=== PATIENT | male | born 1985 | race Caucasian/White ===

== ENCOUNTER 2024-09-24 18:50 | Emergency (ER) | payer OTHER, SELFPAY ==
[2024-09-24] VITALS (8 sets, daily range): BP systolic 131–147; BP diastolic 67–88; PULSE 74–83; RESP 16; TEMP 36.8; O2SAT 94–100; BMI 28.7
[2024-09-24 19:32] LABS: Add Manual Diff / Slide Review NO; Basophils Absolute Auto 100 /uL (0-100); Basophils Percent Auto 0.7 % (0-2); Eosinophils Absolute Auto 0 /uL (0-450); Hematocrit 41.6 % (41-53); Lymphocytes Absolute Auto 800 /uL (1100-4500); Lymphocytes Percent Auto 7.8 % (25-40); Mean Corpuscular HGB Conc 36.1 % (30-36); Mean Corpuscular Hemoglobin 32.5 PG (26-34); Mean Corpuscular Volume 90.1 fL (80-100); Monocytes Absolute Auto 400 /uL (0-900); Monocytes Percent Auto 4.3 % (3-14); Neutrophils Absolute Auto 8600 /uL (1500-7000); Neutrophils Percent Auto 87.2 % (50-75); Platelet Count 260 X10^3/uL (150-400); Red Blood Cell Count 4.62 X10^6/uL (4.5-5.9); Red Cell Distribution Width 13.2 % (11.6-14.8); White Blood Cell Count 9.9 X10^3/uL (4.5-11.0)
[2024-09-24 19:37] LABS: Acetaminophen < 10 ug/mL (10-30); Alanine Aminotransferase 50 IU/L (<50); Albumin 4.7 g/dL (3.5-5.0); Alkaline Phosphatase 81 U/L (38-126); Aspartate Aminotransferase 53 IU/L (17-59); BUN Creatinine Ratio 12.4 (6-22); Blood Urea Nitrogen 11 mg/dL (9-20); Calcium 8.7 mg/dL (8.4-10.2); Carbon Dioxide 28 mmol/L (22-32); Chloride 97 mmol/L (98-107); Estimated Glomerular Filt Rate > 60 mL/min (>60); Ethanol (ETOH) < 10 mg/dL; Globulin 2.4 g/dL (1.7-4.1); Glucose 106 mg/dL (70-100); HEMOLYSIS 18 (0-50); Potassium 3.5 mmol/L (3.4-5.1); Salicylate < 1.0 mg/dL (<20); Sodium 134 mmol/L (137-145); Total Protein 7.1 g/dL (6.3-8.2)
[2024-09-24] MEDS: PHENobarbital 65 MG/ML VIAL 130 MG IV (20:00)
[2024-09-24 20:02] LABS: Free T4, Direct Thyroxine 1.16 ng/dL (0.78-2.19)
--- NOTE | 2024-09-24 21:46 | ED_ITS ---
HPI - Alcohol General Chief Complaint: Toxicology Problem Stated Complaint: Detox Time Seen by Provider: 09/24/24 21:46 Source: patient Mode of arrival: Ambulatory History of Present Illness HPI narrative: Patient is a 39-year-old male sitting that he wants detox from alcohol. Last drink loss was last night 11:00 p.m.. Reports that he has 5 cocktail drinks on week days and more on the weekends. He went to a detox in 2013 states sober for that your but has not really been sober since. Reports that somebody smelled alcohol on his breath at work yesterday he was sent to medical and ultimately sent to the ED for evaluation. He does not feel shaky no anxiety never had alcohol withdrawal seizure before. Does not necessarily want detox tonight. He was in the and they have their own program so he was not really sure how it supposed to work. Related Data Previous Rx's Medication Instructions Recorded chlordiazepoxide HCl 25 mg capsule 25 mg PO Q6-8H PRN alcohol 09/24/24 withdrawal #12 caps Patient History Social History Smoking Status: Former smoker Smoking Status: Former smoker Exam Initial Vital Signs Initial Vital Signs: Vital Signs Temperature 98.3 F 09/24/24 18:58 Pulse Rate 81 09/24/24 18:58 Respiratory Rate 16 09/24/24 18:58 Blood Pressure 142/84 H 09/24/24 18:58 Pulse Oximetry 99 09/24/24 18:58 Oxygen Delivery Method Room Air 09/24/24 18:58 GENERAL: Alert pleasant 39-year-old male and in no acute distress. HEENT: Head atraumatic,EOMI, pupils reactive, face symmetric, moist mucous membranes , no icterus or jaundice CARDIOVASCULAR: Regular rate and rhythm without murmurs, rubs or gallops. RESPIRATORY: Breath sounds equal bilaterally, no wheezes rales or rhonchi. ABDOMEN: Soft, nontender. Normoactive bowel sounds all 4 quadrants. No guarding or rebound. EXTREMITIES: Normal range of motion, no clubbing or edema. Neurovascularly intact NEUROLOGICAL: Alert and oriented x4.Normal gait and speech. Cranial nerves II through XII grossly intact. No tremors SKIN: Warm, dry, no laceration, no petechiae, no rashes or lesions. Course Orders Ordered: ED Orders 09/24/24 19:08 Acetaminophen Stat Complete Blood Count AUTO DIFF Stat Comprehensive Metabolic Panel Stat Ethanol (ETOH) Stat Free T4, Direct Thyroxine Stat Salicylate Stat Thyroid Stimulating Hormone Stat Discontinued Medications Phenobarbital (Phenobarbital 65 Mg/Ml Vial) 130 mg IV NOW ONE Stop: 09/24/24 19:47 Last Admin: 09/24/24 20:00 Dose: 130 mg Documented By: Vital Signs Vital signs: Vital Signs - 8 hr 09/24/24 19:42 09/24/24 19:43 09/24/24 20:00 Pulse Rate 83 74 Blood Pressure 142/85 H Pulse Oximetry 97 96 Oxygen Delivery Method 09/24/24 20:00 09/24/24 20:30 09/24/24 20:30 Pulse Rate 74 Blood Pressure 143/85 H 147/67 H Pulse Oximetry 94 Oxygen Delivery Method Room Air 09/24/24 21:00 09/24/24 21:00 09/24/24 21:30 Pulse Rate 79 75 Blood Pressure 132/72 137/72 Pulse Oximetry 95 94 Oxygen Delivery Method 09/24/24 22:00 Pulse Rate Blood Pressure 131/88 Pulse Oximetry 100 Oxygen Delivery Method Room Air MDM - Alcohol Lab Data 09/24/24 19:08 09/24/24 19:08 Labs: Lab Results 09/24/24 Range/Units 19:08 WBC 9.9 (4.5-11.0) X10^3/uL RBC 4.62 (4.5-5.9) X10^6/uL Hgb 15.0 (13.5-17.5) g/dL Hct 41.6 (41-53) % MCV 90.1 (80-100) fL MCH 32.5 (26-34) PG MCHC 36.1 H (30-36) % RDW 13.2 (11.6-14.8) % Plt Count 260 (150-400) X10^3/uL Neut % (Auto) 87.2 H (50-75) % Lymph % (Auto) 7.8 L (25-40) % Williamson % (Auto) 4.3 (3-14) % Eos % (Auto) 0.0 L (2-4) % Baso % (Auto) 0.7 (0-2) % Neut # (Auto) 8600 H (0670-4365) /uL Lymph # (Auto) 800 L (7666-8589) /uL Williamson # (Auto) 400 (0-900) /uL Eos # (Auto) 0 (0-450) /uL Baso # (Auto) 100 (0-100) /uL Sodium 134 L (137-145) mmol/L Potassium 3.5 (3.4-5.1) mmol/L Chloride 97 L (98-107) mmol/L Carbon Dioxide 28 (22-32) mmol/L BUN 11 (9-20) mg/dL Creatinine 0.89 (0.66-1.25) mg/dL Estimated GFR > 60 (>60) mL/min BUN/Creatinine Ratio 12.4 (6-22) Glucose 106 H (70-100) mg/dL Calcium 8.7 (8.4-10.2) mg/dL Total Bilirubin 1.0 (0.2-1.3) mg/dL AST 53 (17-59) IU/L ALT 50 H (<50) IU/L Alkaline Phosphatase 81 (38-126) U/L Total Protein 7.1 (6.3-8.2) g/dL Albumin 4.7 (3.5-5.0) g/dL Globulin 2.4 (1.7-4.1) g/dL Albumin/Globulin Ratio 2.0 (1.0-2.8) TSH 4.90 H (0.47-4.68) uIU/mL Free T4 1.16 (0.78-2.19) ng/dL Salicylates < 1.0 (<20) mg/dL Acetaminophen < 10 (10-30) ug/mL Ethyl Alcohol < 10 ( - 10) mg/dL MDM Narrative Medical decision making narrative: Patient is a 39-year-old male presenting to day with alcohol withdrawal. He is not really shaky not tremor list but apparently CIWA of 9 when he first arrived. He did receive phenobarbital 130 mg and he rather little nap. Now after re- evaluation he was not tachycardic overall appears well. Wanting detox wanting to stay sober. Reports he is under lot of stress at work. Blood work has been reviewed: No leukocytosis no anemia Sodium 134 potassium 3.5 chloride 97 carbon dioxide 28 BUN 11 creatinine 0.89 glucose 106 Bilirubin 1.0 AST 53 ALT 50 alk-phos 81 TSH elevated 4.9 Patient is not interested in detox tonight. We will go ahead and give him some Librium. Reports that he does not want to start drinking again. Discharge Plan Departure Patient Disposition: Home Clinical Impression: Alcohol withdrawal syndrome Instructions: DI for Alcohol Use Disorder Activity Restrictions/Additional Instructions: *You have been diagnosed with alcohol withdrawal *What to do: At this time I strongly recommend that you go to a detox center where you can be detox appropriately. *Continue to take medications as directed Librium 25 mg 3 times a day for 2 days then 2 times a day for 2 days then once a day for 2 days *Follow up with your primary care provider in 2-3 days or call [phone] *Return to ER if you should have increasing shakes tremors agitation or any new, worsening or concerning symptoms Prescriptions: New chlordiazepoxide HCl 25 mg capsule 25 mg PO Q6-8H PRN (Reason: alcohol withdrawal) Qty: 12 0RF Rx Instructions: Days 1-2: 3 times a day, days 3-4 2 times a day, days 5-6 once daily Referrals: Miscellaneous,Doctor, MD [Primary Care Provider] - Stand Alone Forms: Patient Portal/API/Survey
== END 2024-09-24 22:28 | disposition home or self-care (01) ==
PROVIDERS: Emergency Provider Emergency Medicine
DX: F10.239 Alcohol dependence with withdrawal, unspecified (principal); Y90.0 Blood alcohol level of less than 20 mg/100 ml
CPT/HCPCS: 80053; 80320; 80329; 84439; 84443; 85025; 96374; 99284; G0480; J2560